=== PATIENT | female | born 1940 | race Native Hawaiian/Other Pacific Islander ===

== ENCOUNTER 2016-05-20 14:38 | Outpatient (CLI) | payer OTHER | END 2016-05-20 15:38 | disposition home or self-care (01) | LOC: LAB 14:38 | DX: N39.0 Urinary tract infection, site not specified (principal) | CPT/HCPCS: 87077; 87086; 87088; 87186 ==

== ENCOUNTER 2016-09-16 07:47 | Outpatient (CLI) | payer OTHER ==
[2016-09-16 08:06] LABS: PLATELET COUNT 252 K/uL (152-353)
[2016-09-16 08:33] LABS: POTASSIUM 4.3 mmol/L (3.6-5.2); SODIUM 136 mmol/L (136-145)
== END 2016-09-16 08:50 | disposition home or self-care (01) ==
LOC: LABW 07:47
PROVIDERS: Internal Medicine
DX: I10 Essential (primary) hypertension (principal); D51.0 Vitamin B12 deficiency anemia due to intrinsic factor deficiency; E78.00 Pure hypercholesterolemia, unspecified; R82.99 Other abnormal findings in urine
CPT/HCPCS: 36415; 80053; 80061; 81000; 82607; 84439; 84443; 85027; 87077; 87086; 87088; 87186

== ENCOUNTER 2016-11-27 15:33 | Outpatient (CLI) | payer OTHER | END 2016-11-27 21:20 | disposition home or self-care (01) | LOC: RAD 15:33 | DX: M25.551 Pain in right hip (principal); M25.561 Pain in right knee ==

== ENCOUNTER 2016-12-25 09:30 | Outpatient (CLI) | payer OTHER | END 2016-12-25 18:57 | disposition home or self-care (01) | LOC: MRI 09:30 | DX: M54.16 Radiculopathy, lumbar region (principal) ==

== ENCOUNTER 2017-02-15 11:58 | Outpatient (CLI) | payer OTHER ==
[2017-02-15] MEDS ORDERED: HYDR10TA47 PO (12:13)
[2017-02-15] MEDS ORDERED: AMLO2.5T PO (12:14)
[2017-02-15] MEDS ORDERED: LEVO0.0218 PO (12:14)
[2017-02-15] MEDS ORDERED: COZAAR100 MG PO (12:14)
== END 2017-02-15 12:02 | disposition short-term general hospital (02) ==
LOC: AMB 11:58
DX: R10.84 Generalized abdominal pain (principal)
CPT/HCPCS: A0425; A0429

== ENCOUNTER 2017-02-15 12:04 | Emergency (ER) | payer OTHER ==
[~2017-02-15] VITALS: Ht 157.5 cm; Wt 51.7 kg
[2017-02-15] MEDS ORDERED: HYDR10TA47 PO (12:13)
[2017-02-15] MEDS ORDERED: COZAAR100 MG PO (12:14)
[2017-02-15] MEDS ORDERED: AMLO2.5T PO (12:14)
[2017-02-15] MEDS ORDERED: LEVO0.0218 PO (12:14)
== END 2017-02-15 14:48 | disposition home or self-care (01) ==
LOC: ED 12:04
DX: K59.09 Other constipation (principal); Z98.890 Other specified postprocedural states
CPT/HCPCS: 99282

== ENCOUNTER 2017-12-08 08:08 | Outpatient (CLI) | payer OTHER ==
[~2017-12-08 08:08] MED LIST: AMLO2.5T PO; COZAAR100 MG PO; HYDR10TA47 PO; LEVO0.0218 PO
[2017-12-08 08:56] LABS: PLATELET COUNT 294 K/uL (152-353)
[2017-12-08 09:30] LABS: POTASSIUM 3.1 mmol/L (3.6-5.2)
== END 2017-12-08 19:50 | disposition home or self-care (01) ==
LOC: CT 08:08 → LABW 08:08 → CT 08:30 → LABW 19:50
PROVIDERS: Internal Medicine
DX: R10.84 Generalized abdominal pain (principal); E11.9 Type 2 diabetes mellitus without complications; K59.00 Constipation, unspecified
CPT/HCPCS: 36415; 80053; 80061; 81000; 82043; 82570; 83036; 84439; 84443; 85027; 87077; 87086; 87088; 87186

== ENCOUNTER 2018-05-13 15:59 | Outpatient (CLI) | payer OTHER | END 2018-05-13 20:28 | disposition home or self-care (01) | LOC: LAB 15:59 | DX: N39.0 Urinary tract infection, site not specified (principal) | CPT/HCPCS: 87077; 87086; 87088; 87186 ==

== ENCOUNTER 2018-06-05 18:20 | Emergency (ER) | payer OTHER ==
[~2018-06-05] VITALS: Ht 157.5 cm; Wt 48.1 kg
[2018-06-05 19:18] LABS: PLATELET COUNT 263 K/uL (152-353)
[2018-06-05 19:29] LABS: POTASSIUM 5.2 mmol/L (3.6-5.2); SODIUM 134 mmol/L (136-145)
[2018-06-05 19:44] VITALS: BP 160/56; TEMP 98.1
== END 2018-06-05 19:45 | disposition home or self-care (01) ==
LOC: ED 18:20
PROVIDERS: Emergency Medicine
DX: T18.0XXA Foreign body in mouth, initial encounter (principal); X58.XXXA Exposure to other specified factors, initial encounter; Y93.89 Activity, other specified; Y92.89 Other specified places as the place of occurrence of the external cause
CPT/HCPCS: 36415; 80053; 82550; 84484; 85027; 99283

== ENCOUNTER 2018-06-16 09:40 | Outpatient (CLI) | payer OTHER | END 2018-06-16 23:14 | disposition home or self-care (01) | LOC: US 09:40 | DX: R10.2 Pelvic and perineal pain (principal) ==

== ENCOUNTER 2018-08-19 11:28 | Outpatient (CLI) | payer OTHER | END 2018-08-19 12:00 | disposition short-term general hospital (02) | LOC: AMB 11:28 | DX: R55 Syncope and collapse (principal) | CPT/HCPCS: A0425; A0427 ==

== ENCOUNTER 2018-08-25 14:56 | Outpatient (CLI) | payer OTHER | END 2018-08-25 19:49 | disposition home or self-care (01) | LOC: LAB 14:56 | DX: N30.80 Other cystitis without hematuria (principal) | CPT/HCPCS: 87088 ==

== ENCOUNTER 2018-09-03 13:51 | Outpatient (CLI) | payer OTHER ==
[2018-09-03 14:15] LABS: PLATELET COUNT 288 K/uL (152-353)
== END 2018-09-03 23:07 | disposition home or self-care (01) ==
LOC: LABW 13:51
PROVIDERS: Physician Assistant
DX: I10 Essential (primary) hypertension (principal); R00.1 Bradycardia, unspecified
CPT/HCPCS: 36415; 84439; 84443; 84484; 85007; 85027

== ENCOUNTER 2018-09-07 10:29 | Outpatient (CLI) | payer OTHER | END 2018-09-07 21:39 | disposition home or self-care (01) | LOC: RAD 10:29 | DX: M79.602 Pain in left arm (principal); G58.8 Other specified mononeuropathies ==

== ENCOUNTER 2018-11-30 11:18 | Outpatient (CLI) | payer OTHER ==
[2018-11-30 13:04] LABS: PLATELET COUNT 256 K/uL (152-353)
== END 2018-11-30 19:26 | disposition home or self-care (01) ==
LOC: LAB 11:18
PROVIDERS: Physician Assistant
DX: R53.1 Weakness (principal); R53.83 Other fatigue; E11.9 Type 2 diabetes mellitus without complications
CPT/HCPCS: 82607; 83540; 83735; 85027

== ENCOUNTER 2018-12-21 10:51 | Outpatient (CLI) | payer OTHER | END 2018-12-21 10:55 | disposition short-term general hospital (02) | LOC: AMB 10:51 | DX: M54.89 Other dorsalgia (principal); M25.552 Pain in left hip; M25.551 Pain in right hip; W18.39XA Other fall on same level, initial encounter; Y93.89 Activity, other specified; Y92.018 Other place in single-family (private) house as the place of occurrence of the external cause | CPT/HCPCS: A0425; A0427 ==

== ENCOUNTER 2018-12-21 11:01 | Inpatient (IN) | payer OTHER ==
[~2018-12-21] VITALS: Ht 157.5 cm; Wt 47.7 kg
[2018-12-21 11:01] VITALS: BP 156/66; TEMP 97
[2018-12-21 13:59] LABS: POTASSIUM 2.9 mmol/L (3.6-5.2); SODIUM 139 mmol/L (136-145)
[2018-12-21 14:00] LABS: PLATELET COUNT 292 K/uL (152-353)
[2018-12-21 16:35] VITALS: BP 166/72; TEMP 98.2; Ht 157.5 cm; Wt 47.7 kg
[2018-12-21 20:25] VITALS: BP 119/60; TEMP 98
[2018-12-22] VITALS: BP 177/69; TEMP 98.1
[2018-12-22 03:55] VITALS: BP 175/72; TEMP 98.1
[2018-12-22 05:53] LABS: POTASSIUM 3.3 mmol/L (3.6-5.2)
[2018-12-22 08:15] VITALS: BP 181/80; TEMP 98
[2018-12-22 12:40] VITALS: BP 174/77; TEMP 98.1
[2018-12-22 16:00] VITALS: BP 178/87; TEMP 98
[2018-12-22 20:00] VITALS: BP 178/86; TEMP 97.7
[2018-12-23] VITALS (7 sets, daily range): BP systolic 176–185; BP diastolic 69–97; TEMP 97.8–98.3
[2018-12-23 04:58] LABS: PLATELET COUNT 302 K/uL (152-353)
[2018-12-23 05:14] LABS: POTASSIUM 3.8 mmol/L (3.6-5.2)
[2018-12-24 04:00] VITALS: BP 164/72; TEMP 98.1
[2018-12-24 05:05] LABS: PLATELET COUNT 317 K/uL (152-353)
[2018-12-24 05:20] LABS: POTASSIUM 4.7 mmol/L (3.6-5.2)
[2018-12-24 08:00] VITALS: BP 172/81; TEMP 98.2
[2018-12-24 12:00] VITALS: BP 184/86; TEMP 97.9
[2018-12-24 16:00] VITALS: BP 186/127; TEMP 97.4
[2018-12-24 20:00] VITALS: BP 187/84; TEMP 98.5
[2018-12-25] VITALS (7 sets, daily range): BP systolic 169–177; BP diastolic 68–88; TEMP 97.6–98.6
[2018-12-25 04:38] LABS: PLATELET COUNT 344 K/uL (152-353)
[2018-12-25 04:47] LABS: POTASSIUM 4.8 mmol/L (3.6-5.2)
[2018-12-26 04:00] VITALS: BP 168/85; TEMP 98.6
[2018-12-26 08:00] VITALS: BP 175/86; TEMP 98.3
== END 2018-12-26 12:27 | disposition home or self-care (01) | DRG 552 ==
LOC: ED 11:01 → MED/SURG 13:30
PROVIDERS: Internal Medicine; ADMIT Emergency Medicine
DX: M47.896 Other spondylosis, lumbar region (principal); S32.008A Other fracture of unspecified lumbar vertebra, initial encounter for closed fracture; Z68.1 Body mass index [BMI] 19.9 or less, adult; N39.0 Urinary tract infection, site not specified; E87.6 Hypokalemia; I10 Essential (primary) hypertension; E78.49 Other hyperlipidemia; E03.8 Other specified hypothyroidism; E11.9 Type 2 diabetes mellitus without complications; R26.89 Other abnormalities of gait and mobility; R62.7 Adult failure to thrive; D64.89 Other specified anemias; I71.4 Abdominal aortic aneurysm, without rupture; M15.8 Other polyosteoarthritis; B96.20 Unspecified Escherichia coli [E. coli] as the cause of diseases classified elsewhere; D51.0 Vitamin B12 deficiency anemia due to intrinsic factor deficiency; R42 Dizziness and giddiness; M54.16 Radiculopathy, lumbar region; Z86.73 Personal history of transient ischemic attack (TIA), and cerebral infarction without residual deficits; D72.828 Other elevated white blood cell count; S00.83XA Contusion of other part of head, initial encounter; S20.212A Contusion of left front wall of thorax, initial encounter; S00.12XA Contusion of left eyelid and periocular area, initial encounter; W01.0XXA Fall on same level from slipping, tripping and stumbling without subsequent striking against object, initial encounter; Z91.81 History of falling; W18.39XA Other fall on same level, initial encounter; Y92.230 Patient room in hospital as the place of occurrence of the external cause; Y92.89 Other specified places as the place of occurrence of the external cause
CPT/HCPCS: 36415; 80048; 80053; 81000; 82550; 82607; 82728; 82747; 82948; 83550; 83735; 84165; 84166; 84484; 85007; 85027; 85379; 85651; 86141; 87077; 87086; 87088; 87186; 93005; 96365; 96366; 96367; 96372; 99220; 99283; 99284; A9561; G0378; J0360; J0696; J1650; J1885; J2185; J2920; J3420; J3490

== ENCOUNTER 2018-12-30 18:24 | Outpatient (CLI) | payer OTHER ==
[2018-12-30] MEDS ORDERED: IBU600 MG PO (23:40)
[2018-12-30] MEDS ORDERED: MAGNESIUM500 M2 PO (23:43)
[2018-12-30] MEDS ORDERED: PRAVACHOL20 MG PO (23:44)
[2018-12-30] MEDS ORDERED: CAL-CITRATE PO (23:45)
[2018-12-30] MEDS ORDERED: NITR100C PO (23:46)
[2018-12-30] MEDS ORDERED: POT GLUCONAT595 MG PO (23:48)
[2018-12-30] MEDS ORDERED: AMLODIPINE BESYLATE PO (23:48)
== END 2018-12-30 18:28 | disposition short-term general hospital (02) ==
LOC: AMB 18:24
DX: M25.552 Pain in left hip (principal); M79.605 Pain in left leg
CPT/HCPCS: A0425; A0429

== ENCOUNTER 2018-12-30 18:37 | Inpatient (IN) | payer OTHER ==
[~2018-12-30] VITALS: Ht 162.6 cm; Wt 48.6 kg
[2018-12-30 18:39] VITALS: BP 152/72; TEMP 97.5
[2018-12-30 19:48] LABS: PLATELET COUNT 420 K/uL (152-353)
[2018-12-30 19:53] LABS: POTASSIUM 3.5 mmol/L (3.6-5.2)
[2018-12-30 23:32] VITALS: BP 133/51; TEMP 97.4; BMI 18.8
[2018-12-30] MEDS ORDERED: IBU600 MG PO (23:40)
[2018-12-30] MEDS ORDERED: MAGNESIUM500 M2 PO (23:43)
[2018-12-30] MEDS ORDERED: PRAVACHOL20 MG PO (23:44)
[2018-12-30] MEDS ORDERED: CAL-CITRATE PO (23:45)
[2018-12-30] MEDS ORDERED: NITR100C PO (23:46)
[2018-12-30] MEDS ORDERED: POT GLUCONAT595 MG PO (23:48)
[2018-12-30] MEDS ORDERED: AMLODIPINE BESYLATE PO (23:48)
[2018-12-31] VITALS: BP 133/51; TEMP 97.4
[2018-12-31 04:00] VITALS: BP 176/74; TEMP 98.1
[2018-12-31 08:00] VITALS: BP 183/72; TEMP 98
[2018-12-31 12:00] VITALS: BP 158/65; TEMP 98
[2018-12-31 16:00] VITALS: BP 110/79; TEMP 98.1
[2018-12-31 19:36] VITALS: BP 105/66; TEMP 98.2
[2019-01-01] VITALS: BP 175/73; TEMP 98.8
[2019-01-01 04:22] VITALS: BP 176/79; TEMP 97.6
[2019-01-01 05:30] LABS: PLATELET COUNT 365 K/uL (152-353)
[2019-01-01 05:55] LABS: POTASSIUM 3.7 mmol/L (3.6-5.2)
[2019-01-01 08:00] VITALS: BP 193/87; TEMP 98.4
[2019-01-01 12:00] VITALS: BP 176/87; TEMP 98.2
[2019-01-01 16:00] VITALS: BP 192/78; TEMP 98.3
[2019-01-01 19:58] VITALS: BP 183/82; TEMP 98.3
[2019-01-02] VITALS: BP 150/78; TEMP 98.1
[2019-01-02 04:00] VITALS: BP 189/78; TEMP 97.3
[2019-01-02 05:14] LABS: PLATELET COUNT 305 K/uL (152-353)
[2019-01-02 05:37] LABS: POTASSIUM 3.7 mmol/L (3.6-5.2)
[2019-01-02 08:00] VITALS: BP 184/75; TEMP 97.8
[2019-01-02 12:00] VITALS: BP 183/75; TEMP 98.3
[2019-01-02 16:00] VITALS: BP 167/67; TEMP 98.3
[2019-01-02 20:00] VITALS: BP 174/76; TEMP 98.1
[2019-01-03] VITALS (7 sets, daily range): BP systolic 153–191; BP diastolic 56–82; TEMP 97.9–98.6
[2019-01-03 10:41] LABS: PLATELET COUNT 296 K/uL (152-353)
[2019-01-03 10:51] LABS: POTASSIUM 3.4 mmol/L (3.6-5.2)
[2019-01-04 04:00] VITALS: BP 174/72; TEMP 97.9
[2019-01-04 08:00] VITALS: BP 1701/81; TEMP 98.5
[2019-01-04 12:00] VITALS: BP 171/77; TEMP 98.3
[2019-01-04 16:00] VITALS: BP 144/59; TEMP 98.1
[2019-01-04 20:00] VITALS: BP 165/60; TEMP 98.6
[2019-01-05] VITALS: BP 176/88; TEMP 98.3
[2019-01-05 04:00] VITALS: BP 187/76; TEMP 97.9
[2019-01-05 05:42] LABS: PLATELET COUNT 285 K/uL (152-353)
[2019-01-05 05:56] LABS: POTASSIUM 4.2 mmol/L (3.6-5.2)
[2019-01-05 08:00] VITALS: BP 188/81; TEMP 97.7
[2019-01-05 12:00] VITALS: BP 176/73; TEMP 98.3
[2019-01-05 16:00] VITALS: BP 159/77; TEMP 98.7
[2019-01-05 20:00] VITALS: BP 184/74; TEMP 98
[2019-01-06 00:20] VITALS: BP 189/75; TEMP 98.2
[2019-01-06 04:00] VITALS: BP 184/81; TEMP 98.2
[2019-01-06 08:00] VITALS: BP 191/88; TEMP 97.8
[2019-01-06 12:00] VITALS: BP 168/67; TEMP 98.5
[2019-01-06 16:00] VITALS: BP 189/65; TEMP 99.2
[2019-01-06 20:00] VITALS: BP 162/57; TEMP 98.1
[2019-01-07] VITALS: BP 183/64; TEMP 97.5
[2019-01-07 04:00] VITALS: BP 160/55; TEMP 98
[2019-01-07 04:55] LABS: PLATELET COUNT 267 K/uL (152-353)
[2019-01-07 05:35] LABS: POTASSIUM 4.3 mmol/L (3.6-5.2)
[2019-01-07 08:00] VITALS: BP 178/79; TEMP 97.2
[2019-01-07 12:00] VITALS: BP 150/61; TEMP 98.1
[2019-01-07 16:00] VITALS: BP 183/73; TEMP 96.9
[2019-01-07 20:00] VITALS: BP 164/60; TEMP 98.2
[2019-01-08] VITALS (7 sets, daily range): BP systolic 101–181; BP diastolic 58–79; TEMP 97.5–98.8
[2019-01-08 03:54] LABS: PLATELET COUNT 223 K/uL (152-353)
[2019-01-08 04:27] LABS: POTASSIUM 4.6 mmol/L (3.6-5.2)
[2019-01-09 04:00] VITALS: BP 162/77; TEMP 98
[2019-01-09 12:00] VITALS: BP 164/69; TEMP 98.1
[2019-01-09 16:00] VITALS: BP 178/78; TEMP 98.2
[2019-01-09 20:00] VITALS: BP 176/60; TEMP 98.2
[2019-01-10] VITALS: BP 171/64; TEMP 98
[2019-01-10 03:53] VITALS: BP 171/72; TEMP 98.9
[2019-01-10 05:11] LABS: PLATELET COUNT 235 K/uL (152-353)
[2019-01-10 05:26] LABS: POTASSIUM 4.5 mmol/L (3.6-5.2)
[2019-01-10 08:00] VITALS: BP 181/73; TEMP 97.9
[2019-01-10 12:00] VITALS: BP 177/73; TEMP 98.3
[2019-01-10 16:00] VITALS: BP 181/75; TEMP 98
[2019-01-10 20:00] VITALS: BP 176/78; TEMP 98.2
[2019-01-11] VITALS (7 sets, daily range): BP systolic 94–177; BP diastolic 60–86; TEMP 97.8–98.6; Ht 162.6 cm; Wt 48.6 kg
[2019-01-11 05:25] LABS: PLATELET COUNT 227 K/uL (152-353)
[2019-01-11 05:34] LABS: POTASSIUM 4.5 mmol/L (3.6-5.2)
[2019-01-12] VITALS: BP 169/69; TEMP 98.1
[2019-01-12 04:00] VITALS: BP 149/67; TEMP 97.9
[2019-01-12 08:00] VITALS: BP 197/89; TEMP 97.9
[2019-01-12] MEDS ORDERED: CLON0.1D TD (15:39)
[2019-01-12] MEDS ORDERED: PANTOPRAZOLE 40MG TA PO (15:41)
[2019-01-12] MEDS ORDERED: VIT B12 IM (15:43)
[2019-01-12] MEDS ORDERED: PRED5TAB3 PO (15:45)
== END 2019-01-12 15:30 | disposition home or self-care (01) | DRG 552 ==
LOC: ED 18:37 → MED/SURG 21:40
PROVIDERS: Emergency Medicine; Family Medicine; Internal Medicine; ADMIT Internal Medicine
DX: S32.008A Other fracture of unspecified lumbar vertebra, initial encounter for closed fracture (principal); N39.0 Urinary tract infection, site not specified; M47.896 Other spondylosis, lumbar region; I10 Essential (primary) hypertension; E11.9 Type 2 diabetes mellitus without complications; E03.8 Other specified hypothyroidism; M15.8 Other polyosteoarthritis; R26.89 Other abnormalities of gait and mobility; R62.7 Adult failure to thrive; B96.20 Unspecified Escherichia coli [E. coli] as the cause of diseases classified elsewhere; I71.4 Abdominal aortic aneurysm, without rupture; D51.0 Vitamin B12 deficiency anemia due to intrinsic factor deficiency; R42 Dizziness and giddiness; M54.16 Radiculopathy, lumbar region; Z86.73 Personal history of transient ischemic attack (TIA), and cerebral infarction without residual deficits; E87.6 Hypokalemia; D72.828 Other elevated white blood cell count; S00.83XA Contusion of other part of head, initial encounter; S20.212A Contusion of left front wall of thorax, initial encounter; S00.12XA Contusion of left eyelid and periocular area, initial encounter; W01.0XXA Fall on same level from slipping, tripping and stumbling without subsequent striking against object, initial encounter; Z91.81 History of falling; W18.39XA Other fall on same level, initial encounter; Y92.230 Patient room in hospital as the place of occurrence of the external cause; Y92.89 Other specified places as the place of occurrence of the external cause
CPT/HCPCS: 36415; 80048; 80053; 81000; 84165; 84166; 85007; 85027; 85379; 85651; 87077; 87086; 87088; 87186; 96372; 99284; A9561; J0360; J1650; J1885; J2185; J2920; J3420; J3490

== ENCOUNTER 2019-04-09 08:14 | Outpatient (CLI) | payer OTHER ==
[~2019-04-09 08:14] MED LIST changes: +AMLODIPINE BESYLATE PO; +CAL-CITRATE PO; +CLON0.1D TD; +IBU600 MG PO; +MAGNESIUM500 M2 PO; +NITR100C PO; +PANTOPRAZOLE 40MG TA PO; +POT GLUCONAT595 MG PO; +PRAVACHOL20 MG PO; +PRED5TAB3 PO; +VIT B12 IM
== END 2019-04-09 19:28 | disposition home or self-care (01) ==
LOC: RAD 08:14
DX: M79.602 Pain in left arm (principal)

== ENCOUNTER 2019-05-05 09:58 | Outpatient (CLI) | payer OTHER | END 2019-05-05 19:21 | disposition home or self-care (01) | LOC: RAD 09:58 | DX: M81.0 Age-related osteoporosis without current pathological fracture (principal); M47.12 Other spondylosis with myelopathy, cervical region ==

== ENCOUNTER 2019-12-05 08:52 | Outpatient (CLI) | payer OTHER | END 2019-12-05 23:04 | disposition home or self-care (01) | LOC: LAB 08:52 | DX: R80.9 Proteinuria, unspecified (principal) | CPT/HCPCS: 84155 ==

== ENCOUNTER 2020-07-11 06:48 | Emergency (ER) | payer OTHER ==
[~2020-07-11] VITALS: Ht 152.4 cm; Wt 41.7 kg
[2020-07-11 07:22] LABS: PLATELET COUNT 374 K/uL (152-353)
[2020-07-11 07:34] LABS: POTASSIUM 3.6 mmol/L (3.6-5.2)
[2020-07-11 17:30] VITALS: BP 173/81; TEMP 97.8
[2020-07-12] MEDS ORDERED: CVS STOOL SOFT100 MG PO (09:41)
[2020-07-12] MEDS ORDERED: ASPIRIN 8181 MG PO (09:42)
[2020-07-12] MEDS ORDERED: GABA100C2 PO (09:43)
[2020-07-12] MEDS ORDERED: LABETALOL200 MG PO (09:44)
[2020-07-12] MEDS ORDERED: FENOFIBRATE54 MG PO (09:45)
[2020-07-12] MEDS ORDERED: CYCL10TA35 PO (09:46)
[2020-07-12] MEDS ORDERED: HYDR10TA47A PO (09:47)
== END 2020-07-11 18:42 | disposition home or self-care (01) ==
LOC: ED 06:48
PROVIDERS: Emergency Medicine
DX: R11.2 Nausea with vomiting, unspecified (principal); R19.7 Diarrhea, unspecified; I10 Essential (primary) hypertension; R10.84 Generalized abdominal pain; K52.89 Other specified noninfective gastroenteritis and colitis; M48.56XA Collapsed vertebra, not elsewhere classified, lumbar region, initial encounter for fracture; Z03.818 Encounter for observation for suspected exposure to other biological agents ruled out; Z98.890 Other specified postprocedural states
CPT/HCPCS: 80053; 82150; 83605; 83690; 84484; 85027; 87015; 87045; 87324; 87328; 87329; 87449; 87635; 87899; 93005; 96360; 96375; 99285; J0360; J1170; J2405; J3490; U0003

== ENCOUNTER → 2020-11-01 | Outpatient (CLI) | payer OTHER ==
[~2020-11-01] MED LIST changes: +ASPIRIN 8181 MG PO; +CVS STOOL SOFT100 MG PO; +CYCL10TA35 PO; +FENOFIBRATE54 MG PO; +GABA100C2 PO; +HYDR10TA47A PO; +LABETALOL200 MG PO; +ULTRAM 50MG TAB PO
== END ==
LOC: LABW 08:36
PROVIDERS: ATTEND Nurse Practitioner Family
DX: R80.9 Proteinuria, unspecified (principal)
CPT/HCPCS: 84156

== ENCOUNTER 2020-12-08 10:01 | Outpatient (CLI) | payer OTHER ==
[2020-12-08 10:36] LABS: PLATELET COUNT 329 K/uL (152-353)
== END 2020-12-08 19:23 | disposition home or self-care (01) ==
LOC: US 10:01
PROVIDERS: ATTEND Internal Medicine
DX: N18.32 Chronic kidney disease, stage 3b (principal)
CPT/HCPCS: 36415; 80053; 81000; 82043; 82306; 82330; 82570; 83735; 83970; 84100; 84155; 85027

== ENCOUNTER 2021-06-21 07:48 | Outpatient (CLI) | payer OTHER | END 2021-06-21 19:24 | disposition home or self-care (01) | LOC: LABW 07:48 | PROVIDERS: ATTEND Internal Medicine | DX: N18.32 Chronic kidney disease, stage 3b (principal); R82.998 Other abnormal findings in urine | CPT/HCPCS: 81000; 82043; 82570; 84156; 84166; 87077; 87086; 87088; 87186 ==

== ENCOUNTER 2021-06-29 08:47 | Outpatient (CLI) | payer OTHER ==
[~2021-06-29] VITALS: Ht 157.5 cm; Wt 43.5 kg
== END 2021-06-29 20:31 | disposition home or self-care (01) ==
LOC: INF 08:47
PROVIDERS: ATTEND Internal Medicine
DX: N39.0 Urinary tract infection, site not specified (principal)
CPT/HCPCS: 96365; J1580

== ENCOUNTER 2021-07-01 13:55 | Outpatient (CLI) | payer OTHER | END 2021-07-01 19:29 | disposition home or self-care (01) | LOC: INF 13:55 | PROVIDERS: ATTEND Internal Medicine | DX: N39.0 Urinary tract infection, site not specified (principal) | CPT/HCPCS: 96365; J1580 ==